=== PATIENT | female | born 1965 | race Caucasian/White ===

== ENCOUNTER 2017-06-25 19:32 | Emergency (ER) | payer MEDICAID ==
[2017-06-25 19:50] VITALS: BP 186/92
--- NOTE | 2017-06-25 20:17 | EDM.PDOC ---
ED HPI GENERAL MEDICAL PROBLEM - General Chief Complaint: Upper Extremity Injury/Pain Stated Complaint: SHOULDER BACK PAINS Time Seen by Provider: 06/25/17 20:07 - History of Present Illness INITIAL COMMENTS - FREE TEXT/NARRATIVE: 52-year-old female presents with left shoulder and upper arm pain. On Thursday the patient was using a pop-up trailer and was brings broke and the top came crashing down she held it up with her arm developed sudden pain in her anterior upper arm and shoulder. This occurred on Thursday her pain is progressively been getting worse she was seen in the clinic yesterday at a shoulder and upper arm x-ray that were negative they've got her scheduled for an MRI in about a month. She was started on [place] which doesn't help too much but does cause a lot of nausea and vomiting. Patient has good range of motion with her forearm with supination and pronation flexion extension causes some pain in her upper arm. 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: - Infectious Disease History Infectious Disease History: Reports: Shingles - Past Surgical History Female Surgical History: Reports: Section Musculoskeletal Surgical History: Reports: Arthroscopic Knee Social & Family History - Tobacco Use Smoking Status *Q: Never Smoker Second Hand Smoke Exposure: No - Caffeine Use Caffeine Use: Reports: Coffee, Soda - Recreational Drug Use Recreational Drug Use: No - Living Situation & Occupation Living situation: Reports: , with Family Occupation: Employed Review of Systems - Review of Systems Review Of Systems: See Below Constitutional: Reports: No Symptoms Respiratory: Reports: No Symptoms Cardiovascular: Reports: No Symptoms GI/Abdominal: Reports: Other (Nausea and vomiting brought on by the [place]) Musculoskeletal: Reports: Shoulder Pain, Arm Pain ED EXAM, GENERAL - Physical Exam Exam: See Below Exam Limited By: No Limitations General Appearance: Alert, No Apparent Distress, Other (Any sort of motion with her shoulder is quite tender. Patient can supinate and pronate her forearm flexion and extension at the elbow causes discomfort in the upper arm mostly anterior aspect) Head: Atraumatic, Normocephalic Neck: Normal Inspection, Supple, Non-Tender, Full Range of Motion. No: Tender Lateral, Tender Midline Respiratory/Chest: No Respiratory Distress, Lungs Clear, Normal Breath Sounds Cardiovascular: Regular Rate, Rhythm, No Edema, No Murmur Back Exam: Muscle Spasm (The upper left back she's developing some spasm especially with the shoulder musculature). No: Paraspinal Tenderness, Vertebral Tenderness Extremities: Other (She does not want to move her shoulder for anything at this point she's got a bulge anteriorly over the humerus and this was worked was initially most tender) Course - Vital Signs Last Recorded V/S: Last Vital Signs Temp 36.2 C 06/25/17 19:45 Pulse 69 06/25/17 19:45 Resp 18 06/25/17 19:45 BP 186/92 H 06/25/17 19:45 Pulse Ox 99 06/25/17 19:45 - Re-Assessments/Exams Free Text/Narrative Re-Assessment/Exam: 06/25/17 20:35 We will attempt to get an MRI in the next few days for her as [facility] can see her early next week her exam and history is consistent with a potential biceps rupture Departure - Departure Time of Disposition: 20:37 Disposition: Home, Self-Care 01 Clinical Impression: Injury of left shoulder, Other injury of muscle, fascia and tendon of long head of biceps, right arm, initial encounter - Discharge Information Prescriptions: Ondansetron [Zofran ODT] 4 mg PO Q6H PRN #10 tab.dis PRN Reason: Nausea/Vomiting Referrals: Fabiola Fontana, DIRECTOR [employer]FFAIRS [Primary Care Provider] - Additional Instructions: Return to the emergency room with any questions problems or worsening symptoms. Stop the Aleve ibuprofen or naproxen as your blood pressure is too high he can continue to use the topical. We have given a prescription for Zofran to help with the nausea brought on by the pain pills uses mostly at night. Use caution with the pain pills you should allow yourself 12 hours after taking this medication before driving or returning to work. Follow-up in the clinic tomorrow or Thursday to have your blood pressure rechecked. In order has been put in for a MRI of your shoulder and upper arm I anticipate this can be done next week.
== END 2017-06-25 21:00 | disposition home or self-care (01) ==
LOC: JD.ED 19:32
DX: S46.801A Unspecified injury of other muscles, fascia and tendons at shoulder and upper arm level, right arm, initial encounter (principal); K21.9 Gastro-esophageal reflux disease without esophagitis; Z88.6 Allergy status to analgesic agent; X58.XXXA Exposure to other specified factors, initial encounter
CPT/HCPCS: 99283

== ENCOUNTER 2018-03-11 00:27 | Emergency (ER) | payer MEDICAID ==
[2018-03-11 00:45] VITALS: BP 144/102
[2018-03-11] MEDS ORDERED: Sulfamethoxazole/Trimethoprim 800-160 MG Tab PO ONE (01:16)
--- NOTE | 2018-03-11 01:30 | EDM.PDOC ---
ED HPI GENERAL MEDICAL PROBLEM - General Chief Complaint: General Stated Complaint: INFECTION AROUND [place] Time Seen by Provider: 03/11/18 00:55 Source of Information: Reports: Patient, RN Notes Reviewed - History of Present Illness INITIAL COMMENTS - FREE TEXT/NARRATIVE: 52-year-old lady comes in concerned about worsening periumbilical cellulitis. That there has been redness of the any central part of her umbilicus for quite some time. Started spreading last Thursday 5 days ago. She was seen at our medical clinic yesterday, prescribed doxycycline 100 mg twice a day. A [place] was drawn around the erythematous border, there are a couple of areas where the erythema has expanded beyond that line this evening bringing her to the ED at this time. He has had no fever or chills. There is localized burning discomfort. To this time she has only taken 1 dose of the doxycycline which was this past morning. She is not diabetic. 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: Reports: 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: - Infectious Disease History Infectious Disease History: Reports: Shingles - Past Surgical History Female Surgical History: Reports: Section Musculoskeletal Surgical History: Reports: Arthroscopic Knee Social & Family History - Tobacco Use Smoking Status *Q: Never Smoker Second Hand Smoke Exposure: No - Caffeine Use Caffeine Use: Reports: Soda - Recreational Drug Use Recreational Drug Use: No - Living Situation & Occupation Living situation: Reports: , with Family Occupation: Employed ED ROS GENERAL - Review of Systems Review Of Systems: See Below Constitutional: Denies: Fever, Chills HEENT: Denies: Throat Pain Respiratory: Denies: Shortness of Breath Cardiovascular: Denies: Chest Pain GI/Abdominal: Reports: Other (Periumbilical discomfort) Skin: Reports: Erythema (There is an area of erythema surrounding her umbilicus) ED EXAM, GENERAL - Physical Exam Exam: See Below General Appearance: Alert, No Apparent Distress Head: No: Facial Swelling Neck: Supple Respiratory/Chest: No Respiratory Distress GI/Abdominal: Other (Umbilicus is inflamed and swollen, there is an area of erythema around the umbilicus in all directions which is about 3.5 cm in diameter. There is a line that was drawn around the erythematous margin. This barely proceeds beyond the margin in a couple of areas. There is some localized tenderness as expected, no subcutaneous mass palpable ) Neurological: Alert, Oriented Skin Exam: Warm, Dry, Other (No other area of skin infection or inflammation brought to my attention) Course - Vital Signs Last Recorded V/S: Last Vital Signs Temp 99.1 F 03/11/18 00:41 Pulse 86 03/11/18 00:41 Resp 18 03/11/18 00:41 BP 144/102 H 03/11/18 00:41 Pulse Ox 94 L 03/11/18 00:41 - Orders/Labs/Meds Meds: Medications Discontinued Medications Generic Name Dose Route Start Last Admin Trade Name Leyla PRN Reason Stop Dose Admin Trimethoprim/Sulfamethoxazole 1 tab 03/11/18 01:16 03/11/18 01:20 Septra Ds PO 03/11/18 01:17 1 tab ONETIME ONE Administration - Re-Assessments/Exams Free Text/Narrative Re-Assessment/Exam: 03/11/18 01:41 I've advised patient to increase her doxycycline to 2 tabs twice daily for the next 2 days and then back to 100 mg twice daily. I have advised that we add a second antibiotic, Bactrim DS twice a day for 1 week. Patient does have concern about possible abscess formation. I can't totally rule that out at this time but on the other hand I do not feel any sign of subcutaneous mass. She has apparent cellulitis. She only presented to medical provider yesterday and has only taken 1 dose of antibiotic. I've explained that it will take several days of the above treatment to get the infection under control and allow the redness and inflammation to start resolving. She inquired about getting an ultrasound tonight. We do have an gis technician on-call but we've been asked to be calling them in primarily for emergency basis only. I do not believe that this is emergency basis to warrant bringing in a tech at 1:30 in the morning. In order for outpatient ultrasound has been written. I've informed patient that our radiology staff will be calling her first thing this morning to set her up for a time today to get that done. Discharge instructions as documented. Departure - Departure Time of Disposition: : Disposition: Home, Self-Care Clinical Impression: Cellulitis Qualifiers: Site of cellulitis of trunk: umbilicus - Discharge Information Instructions: Cellulitis, Adult Referrals: Fabiola Fontana [employer] [Primary Care Provider] - Forms: ED Department Discharge Additional Instructions: Increase your doxycycline to 200 mg twice daily for 2 days and than back to 1 tablet twice daily. Begin Bactrim antibiotic which is sulfa-based 1 tab twice daily and take that for the next week, an order for ultrasound of the area of your infection to rule out abscess has been written and routed to radiology, they will call you first thing this morning to set you up for a time to have that done today. Follow-up with your regular medical provider later today after ultrasound if possible for recheck and for results. Call clinic for appointment. Return to ED as needed if symptoms worsening in any way. Consider taking [id number] Pepcid or Prilosec if you feel that either of these antibiotics are upsetting your stomach.
== END 2018-03-11 01:40 | disposition home or self-care (01) ==
LOC: JD.ED 00:27
DX: L03.316 Cellulitis of umbilicus (principal); Z88.8 Allergy status to other drugs, medicaments and biological substances
CPT/HCPCS: 99283; A9270

== ENCOUNTER 2018-11-04 15:36 | Emergency (ER) | payer MEDICAID ==
[2018-11-04 15:49] VITALS: BP 175/106
[2018-11-04] MEDS ORDERED: LORazepam 2 MG/ML SDV IVPUSH ONE (15:58)
[2018-11-04] MEDS ORDERED: Ondansetron 4 MG/2 ML SDV IVPUSH ONE (15:58)
[2018-11-04] MEDS: Sodium Chloride 0.9% 10 ML Syringe FLUSH PRN ×2 (16:08→16:55)
[2018-11-04] MEDS ORDERED: HYDROmorphone 1 MG/ML Syringe IVPUSH ONE (16:27)
[2018-11-04] MEDS ORDERED: Scopolamine 1.5 MG Transdermal Patch TOP ONE (16:31)
--- NOTE | 2018-11-04 16:31 | EDM.PDOC ---
ED HPI GENERAL MEDICAL PROBLEM - General Chief Complaint: Chest Pain Stated Complaint: CHEST PAIN Time Seen by Provider: 11/04/18 15:50 Source of Information: Reports: Patient History Limitations: Reports: No Limitations - History of Present Illness INITIAL COMMENTS - FREE TEXT/NARRATIVE: 53-year-old female presents for evaluation and treatment of chest pain. Patient reports that the chest pain started suddenly around 1500. Reports that it is located in the center of her chest and she describes the pain as a sharp stabbing sensation that was through her back. She denies any pain currently. Reports that the pain comes on suddenly and lasts for a few seconds to a few minutes. She reports associated symptoms of shortness of breath, diaphoresis and nausea. No vomiting. No syncope. Reports she always has abdominal pain but states this is not any worse than normal. She denies any urinary symptoms. Patient Does not take aspirin due to airway tightness as an allergy. She denies any cardiac history herself. Reports a significant family history of both her mother and father MIs at young age, age 39 and 40s . Onset: Today, Sudden Location: Reports: Chest, Abdomen, Back Middle Chest Pain Score (Numeric/FACES): 9 - Related Data Allergies Allergy/AdvReac Type Severity Reaction Status Date / Time aspirin Allergy Airway Verified 11/04/18 15:53 Tightness Home Meds: Home Meds Ketorolac [Acular 0.5% Ophth Soln] 1 drop EYERT QID PRN #1 bottle 03/15/16 [Rx] Acetaminophen/HYDROcodone [[place] 325-5 MG] 1 tab PO Q4H PRN 06/25/17 [History] Naproxen 250 mg PO 6XDAY PRN 06/25/17 [History] Ondansetron [Zofran ODT] 4 mg PO Q6H PRN #10 tab.dis 06/25/17 [Rx] Acyclovir 800 mg PO BID 11/04/18 [History] Brimonidine Tartrate/Timolol [Combigan Eye Drops] 5 ml OP DAILY 11/04/18 [ History] Carboxymethylcellulose Sodium [Refresh Tears 0.5% Ophth Soln] 15 ml OP DAILY [History] Exenatide Microspheres [Bydureon Pen] 2 mg SQ DAILY 11/04/18 [History] Fluticasone/Sod Chl/Sod Bicarb [Ticanase Kit] 2 spray NS DAILY 11/04/18 [History ] Prednisolone Acetate/Pf [Prednisolone Acet 1% Eye Drop] 1 drop EYERT QID [History] sitaGLIPtin Phos/Metformin HCl [Janumet 50-500 MG] 1 each PO DAILY 11/04/18 [ History] Past Medical History HEENT History: Reports: Other (See Below) Other HEENT History: shingles to right eye Gastrointestinal History: Reports: GERD 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: - Infectious Disease History Infectious Disease History: Reports: Shingles - Past Surgical History HEENT Surgical History: Reports: Eye Surgery Female Surgical History: Reports: Section Musculoskeletal Surgical History: Reports: Arthroscopic Knee Social & Family History - Tobacco Use Smoking Status *Q: Never Smoker Second Hand Smoke Exposure: No - Caffeine Use Caffeine Use: Reports: None - Recreational Drug Use Recreational Drug Use: No - Living Situation & Occupation Living situation: Reports: , with Family Occupation: Employed ED ROS GENERAL - Review of Systems Review Of Systems: See Below Respiratory: Reports: Shortness of Breath. Denies: Cough Cardiovascular: Reports: Chest Pain GI/Abdominal: Reports: Nausea. Denies: Abdominal Pain Musculoskeletal: Reports: Back Pain Neurological: Reports: Dizziness. Denies: Syncope ED EXAM, GENERAL - Physical Exam Exam: See Below Exam Limited By: No Limitations General Appearance: Alert, WD/WN, No Apparent Distress, Anxious, Obese Nose: Normal Inspection Throat/Mouth: Normal Inspection, Normal Voice, No Airway Compromise Respiratory/Chest: No Respiratory Distress, Lungs Clear, Normal Breath Sounds Cardiovascular: Normal Peripheral Pulses, Regular Rate, Rhythm, No Murmur GI/Abdominal: Normal Bowel Sounds, Soft, Non-Tender Neurological: Alert, Oriented, Normal Cognition Psychiatric: Anxious Skin Exam: Warm, Dry, Normal Color EKG INTERPRETATION EKG Date: 11/04/18 Time: 15:44 Rhythm: NSR Rate (Beats/Min): 95 [place]: Normal P-Wave: Present QRS: Normal ST-T: Normal QT: Normal EKG Interpretation Comments: NSR at 95 bpm. No AVB. No AE. < 1/[address] depression lateral leads, but no T wave inversions. No LAD/RAD. No LVH. No IVCD. QTc within normal limits with a QTc of 447. Course - Vital Signs Last Recorded V/S: Last Vital Signs Temp 98.6 F 11/04/18 15:43 Pulse 103 H 11/04/18 15:43 Resp 20 11/04/18 15:43 BP 175/106 H 11/04/18 15:43 Pulse Ox 99 11/04/18 15:43 - Orders/Labs/Meds Orders: Active Orders 24 hr Category Date Time Status Cardiac Monitoring [RC] . DIRECTED Care 11/04/18 15:52 Active EKG Documentation Completion [RC] ASDIRECTED Care 11/04/18 15:54 Active Peripheral IV Care [RC] . DIRECTED Care 11/04/18 15:54 Active Peripheral IV Insertion Adult [OM.PC] Routine Oth 11/04/18 15:52 Ordered EKG 12 Lead [EK] Stat Ther 11/04/18 15:52 Ordered Labs: Laboratory Tests 11/04/18 11/04/18 11/04/18 Range/Units 15:50 15:50 15:50 WBC 10.17 H (3.98-10.04) K/mm3 RBC 5.09 (3.98-5.22) M/mm3 Hgb 15.1 (11.2-15.7) gm/L Hct 45.1 H (34.1-44.9) % MCV 88.6 (79.4-94.8) fl MCH 29.7 (25.6-32.2) pg MCHC 33.5 (32.2-35.5) g/dl RDW Std Deviation 46.1 (36.4-46.3) fL Plt Count 315 (182-369) K/mm3 MPV 10.1 (9.4-12.3) fl Neut % (Auto) 56.2 (34.0-71.1) % Lymph % (Auto) 33.0 (19.3-51.7) % [place] % (Auto) 8.6 (4.7-12.5) % Eos % (Auto) 1.5 (0.7-5.8) Baso % (Auto) 0.5 (0.1-1.2) % Neut # (Auto) 5.72 (1.56-6.13) K/mm3 Lymph # (Auto) 3.36 (1.18-3.74) K/mm3 [place] # (Auto) 0.87 H (0.24-0.36) K/mm3 Eos # (Auto) 0.15 (0.04-0.36) K/mm3 Baso # (Auto) 0.05 (0.01-0.08) K/mm3 D-Dimer, Quantitative 0.45 (0.19-0.50) mg/L Sodium 139 (136-145) mEq/L Potassium 3.7 (3.5-5.1) mEq/L Chloride 103 (98-107) mEq/L Carbon Dioxide 26 (21-32) mEq/L Anion Gap 13.7 (5-15) BUN 13 (7-18) mg/dL Creatinine 0.9 (0.55-1.02) mg/dL Est Cr Clr Drug Dosing 73.76 mL/min Estimated GFR (MDRD) > 60 (>60) mL/min BUN/Creatinine Ratio 14.4 (14-18) Glucose 83 (74-106) mg/dL Calcium 9.6 (8.5-10.1) mg/dL Total Bilirubin 0.7 (0.2-1.0) mg/dL AST 28 (15-37) U/L ALT 56 (14-59) U/L Alkaline Phosphatase 65 (46-116) U/L CK-MB (CK-2) 1.3 (0-3.6) ng/ml Troponin I < 0.017 (0.00-0.056) ng/mL C-Reactive Protein (<1.0) mg/dL Total Protein 8.4 H (6.4-8.2) g/dl Albumin 4.3 (3.4-5.0) g/dl Globulin 4.1 gm/dL Albumin/Globulin Ratio 1.1 (1-2) Lipase (73-393) U/L Urine Color (Yellow) Urine Appearance (Clear) Urine pH (5.0-8.0) Ur Specific [place] (1.005-1.030) Urine Protein (Negative) Urine Glucose (UA) (Negative) Urine Ketones (Negative) Urine Occult Blood (Negative) Urine Nitrite (Negative) Urine Bilirubin (Negative) Urine Urobilinogen (0.2-1.0) Ur Leukocyte Esterase (Negative) Urine RBC (0-5) /hpf Urine WBC (0-5) /hpf Ur Epithelial Cells (0-5) /hpf Urine Bacteria (FEW) /hpf Urine Mucus (FEW) /hpf 11/04/18 11/04/18 11/04/18 Range/Units 15:50 15:50 16:35 WBC (3.98-10.04) K/mm3 RBC (3.98-5.22) M/mm3 Hgb (11.2-15.7) gm/L Hct (34.1-44.9) % MCV (79.4-94.8) fl MCH (25.6-32.2) pg MCHC (32.2-35.5) g/dl RDW Std Deviation (36.4-46.3) fL Plt Count (182-369) K/mm3 MPV (9.4-12.3) fl Neut % (Auto) (34.0-71.1) % Lymph % (Auto) (19.3-51.7) % [place] % (Auto) (4.7-12.5) % Eos % (Auto) (0.7-5.8) Baso % (Auto) (0.1-1.2) % Neut # (Auto) (1.56-6.13) K/mm3 Lymph # (Auto) (1.18-3.74) K/mm3 [place] # (Auto) (0.24-0.36) K/mm3 Eos # (Auto) (0.04-0.36) K/mm3 Baso # (Auto) (0.01-0.08) K/mm3 D-Dimer, Quantitative (0.19-0.50) mg/L Sodium (136-145) mEq/L Potassium (3.5-5.1) mEq/L Chloride (98-107) mEq/L Carbon Dioxide (21-32) mEq/L Anion Gap (5-15) BUN (7-18) mg/dL Creatinine (0.55-1.02) mg/dL Est Cr Clr Drug Dosing mL/min Estimated GFR (MDRD) (>60) mL/min BUN/Creatinine Ratio (14-18) Glucose (74-106) mg/dL Calcium (8.5-10.1) mg/dL Total Bilirubin (0.2-1.0) mg/dL AST (15-37) U/L ALT (14-59) U/L Alkaline Phosphatase (46-116) U/L CK-MB (CK-2) (0-3.6) ng/ml Troponin I (0.00-0.056) ng/mL C-Reactive Protein < 0.2 (<1.0) mg/dL Total Protein (6.4-8.2) g/dl Albumin (3.4-5.0) g/dl Globulin gm/dL Albumin/Globulin Ratio (1-2) Lipase 229 (73-393) U/L Urine Color Yellow (Yellow) Urine Appearance Clear (Clear) Urine pH 7.0 (5.0-8.0) Ur Specific [place] 1.020 (1.005-1.030) Urine Protein Negative (Negative) Urine Glucose (UA) Negative (Negative) Urine Ketones Negative (Negative) Urine Occult Blood Negative (Negative) Urine Nitrite Negative (Negative) Urine Bilirubin Negative (Negative) Urine Urobilinogen 0.2 (0.2-1.0) Ur Leukocyte Esterase Trace H (Negative) Urine RBC 0-5 (0-5) /hpf Urine WBC 0-5 (0-5) /hpf Ur Epithelial Cells 5-10 H (0-5) /hpf Urine Bacteria Moderate H (FEW) /hpf Urine Mucus Not seen (FEW) /hpf 11/04/18 Range/Units 18:50 WBC (3.98-10.04) K/mm3 RBC (3.98-5.22) M/mm3 Hgb (11.2-15.7) gm/L Hct (34.1-44.9) % MCV (79.4-94.8) fl MCH (25.6-32.2) pg MCHC (32.2-35.5) g/dl RDW Std Deviation (36.4-46.3) fL Plt Count (182-369) K/mm3 MPV (9.4-12.3) fl Neut % (Auto) (34.0-71.1) % Lymph % (Auto) (19.3-51.7) % [place] % (Auto) (4.7-12.5) % Eos % (Auto) (0.7-5.8) Baso % (Auto) (0.1-1.2) % Neut # (Auto) (1.56-6.13) K/mm3 Lymph # (Auto) (1.18-3.74) K/mm3 [place] # (Auto) (0.24-0.36) K/mm3 Eos # (Auto) (0.04-0.36) K/mm3 Baso # (Auto) (0.01-0.08) K/mm3 D-Dimer, Quantitative (0.19-0.50) mg/L Sodium (136-145) mEq/L Potassium (3.5-5.1) mEq/L Chloride (98-107) mEq/L Carbon Dioxide (21-32) mEq/L Anion Gap (5-15) BUN (7-18) mg/dL Creatinine (0.55-1.02) mg/dL Est Cr Clr Drug Dosing mL/min Estimated GFR (MDRD) (>60) mL/min BUN/Creatinine Ratio (14-18) Glucose (74-106) mg/dL Calcium (8.5-10.1) mg/dL Total Bilirubin (0.2-1.0) mg/dL AST (15-37) U/L ALT (14-59) U/L Alkaline Phosphatase (46-116) U/L CK-MB (CK-2) (0-3.6) ng/ml Troponin I < 0.017 (0.00-0.056) ng/mL C-Reactive Protein (<1.0) mg/dL Total Protein (6.4-8.2) g/dl Albumin (3.4-5.0) g/dl Globulin gm/dL Albumin/Globulin Ratio (1-2) Lipase (73-393) U/L Urine Color (Yellow) Urine Appearance (Clear) Urine pH (5.0-8.0) Ur Specific [place] (1.005-1.030) Urine Protein (Negative) Urine Glucose (UA) (Negative) Urine Ketones (Negative) Urine Occult Blood (Negative) Urine Nitrite (Negative) Urine Bilirubin (Negative) Urine Urobilinogen (0.2-1.0) Ur Leukocyte Esterase (Negative) Urine RBC (0-5) /hpf Urine WBC (0-5) /hpf Ur Epithelial Cells (0-5) /hpf Urine Bacteria (FEW) /hpf Urine Mucus (FEW) /hpf Meds: Medications Discontinued Medications Generic Name Dose Route Start Last Admin Trade Name Freq PRN Reason Stop Dose Admin Hydromorphone HCl 0.5 mg 11/04/18 16:27 11/04/18 19:13 Dilaudid IVPUSH 11/04/18 16:28 Not Given ONETIME ONE Sodium Chloride 100 mls @ 60 mls/hr 11/04/18 16:45 11/04/18 16:55 Normal Saline IV 60 mls/hr ASDIRECTED OLGA Administration Iopamidol 100 ml 11/04/18 16:45 11/04/18 16:55 Isovue-370 (76%) IVPUSH 11/04/18 16:46 100 ml ONETIME ONE Administration Lorazepam 1 mg 11/04/18 15:58 11/04/18 16:08 Ativan IVPUSH 11/04/18 15:59 Not Given ONETIME ONE Ondansetron HCl 4 mg 11/04/18 15:58 11/04/18 16:08 Zofran IVPUSH 11/04/18 15:59 Not Given ONETIME ONE Scopolamine 1.5 mg 11/04/18 16:31 11/04/18 16:36 Transderm-Scop TOP 11/04/18 16:32 1.5 mg ONETIME ONE Administration Sodium Chloride 10 ml 11/04/18 15:52 11/04/18 16:55 Saline Flush FLUSH 10 ml ASDIRECTED PRN Administration Keep Vein Open - Radiology Interpretation Free Text/Narrative:: Chest: Portable view of the chest was obtained. Comparison: No previous chest x-ray. Heart size is normal. Tortuous thoracic aorta is seen. Lungs are clear with no acute parenchymal change. Bony structures are grossly intact. Impression: 1. Nothing acute is seen on portable chest x-ray. Chest: Portable view of the chest was obtained. Comparison: No previous chest x-ray. Heart size is normal. Tortuous thoracic aorta is seen. Lungs are clear with no acute parenchymal change. Bony structures are grossly intact. Impression: 1. Nothing acute is seen on portable chest x-ray. CT chest Technique: Multiple axial sections through the chest were obtained. Intravenous contrast was utilized. Comparison: No prior chest CT, previous chest x-ray performed earlier on the same day (4:17 PM). Findings: Aorta shows no aneurysm or dissection. Visualized pulmonary arteries show no evidence of pulmonary embolism. No pericardial thickening is seen. Mediastinum and hilar regions show no adenopathy. No axillary adenopathy is seen. Small nodule is identified within the right upper lung measuring 3 mm. Lungs otherwise are clear. Bone window settings were reviewed which shows no acute osseous abnormality. Minimal degenerative change is scattered throughout the thoracic spine. Impression: 1. No evidence of thoracic aortic aneurysm or dissection. 2. 3 mm nodule within the right upper lung showing no calcification. If patient is not a smoker, this can be ignored. If patient is a smoker, recommend repeat noncontrast chest CT in one year. 3. Other incidental findings. CT abdomen and pelvis Technique: Multiple axial sections were obtained from above the dome of the diaphragm inferiorly through the pubic symphysis. Intravenous contrast was utilized. No oral contrast has been given. Comparison: Previous limited abdominal ultrasound of 03/11/18 is available. Findings: Liver shows mild fatty infiltration without focal abnormality. Surgical clips are seen from prior cholecystectomy. Spleen appears within normal limits. Small soft tissue nodule is noted medial to the spleen compatible with accessory splenic tissue. No adrenal nodule is seen. Pancreas is within normal limits. Kidneys show symmetric contrast enhancement without hydronephrosis or mass. Aorta shows no aneurysm. No dissection is seen. No pelvic mass or adenopathy is seen. Sigmoid diverticuli are seen as well as diverticuli within the descending colon without evidence of diverticulitis. Appendix is felt to be visualized and is normal in size. Bone window settings were reviewed which shows mild degenerative change within the spine. No acute osseous abnormality is seen. Impression: 1. Aorta shows no aneurysm or dissection. 2. Fatty infiltration within the liver and other incidental findings as described above. 3. Nothing acute is seen. - Re-Assessments/Exams Free Text/Narrative Re-Assessment/Exam: 11/04/18 16:34 Aspirin is not given to this patient due to allergy of airway tightness with aspirin. Patient notified radiology staff after chest x-ray she experienced pain. I entered the room she identified pain in the right upper quadrant. She then states that it went to the right side of her back. She then reported pain to the left side of her back. Reports the pain was sharp stabbing in nature and a 10 out of 10. She is moaning and squirming on the cot. She has refused to the IV Ativan and Zofran. She states that they make her nauseous and vomited. She refused IV Dilaudid for pain control. We will CT her chest abdomen and pelvis ensure there is no dissection. Suspect anxiety as a large component of her discomfort. Previous abdominal surgeries include lap dolores. 11/04/18 20:25 Reviewed labs, ekg and imaging with the patient. Repeat trop is <0.017. Patient is not having an acute MA. Based on history she should have a stress test and have her cholesterol checked if this has not been done. Recommend follow-up in the clinic. She would like to peruse further work-up with Marcos. I will have her follow-up with PCP and they can order the stress test and refer to cardiology if necessary. Discharge instructions as documented. Departure - Departure Time of Disposition: 20:26 Disposition: Home, Self-Care 01 Condition: Good Clinical Impression: Atypical chest pain Instructions: Nonspecific Chest Pain, Enqx-in-Goyl Referrals: Josephine Dickens PA-C [Primary Care Provider] - Forms: ED Department Discharge Additional Instructions: Follow-up with PCP this week or next week for a recheck of your symptoms. Highly recommend getting a stress test. Your PCP can order this for you. Continue with current medication and plan of care. Recommend holding your metformin x 3 days, if you do not feel uncomfortable holding your metformin, you may continue on it but make sure you are drinking plenty of fluids. Please return to the ER should your symptoms change or worsen. - My Orders Last 24 Hours: My Active Orders 11/04/18 15:52 Cardiac Monitoring [RC] . DIRECTED Peripheral IV Insertion Adult [OM.PC] Routine EKG 12 Lead [EK] Stat 11/04/18 15:54 EKG Documentation Completion [RC] ASDIRECTED Peripheral IV Care [RC] . DIRECTED - Assessment/Plan Last 24 Hours: My Active Orders 11/04/18 15:52 Cardiac Monitoring [RC] . DIRECTED Peripheral IV Insertion Adult [OM.PC] Routine EKG 12 Lead [EK] Stat 11/04/18 15:54 EKG Documentation Completion [RC] ASDIRECTED Peripheral IV Care [RC] . DIRECTED
[2018-11-04] MEDS ORDERED: Sodium Chloride 0.9% 100 ML IV SCH (16:45)
[2018-11-04] MEDS ORDERED: Iopamidol 755 Mg/ML 100 ML Bottle IVPUSH ONE (16:45)
--- NOTE | 2018-11-04 17:33 | CT ---
CT chest Technique: Multiple axial sections through the chest were obtained. Intravenous contrast was utilized. Comparison: No prior chest CT, previous chest x-ray performed earlier on the same day (4:17 PM). Findings: Aorta shows no aneurysm or dissection. Visualized pulmonary arteries show no evidence of pulmonary embolism. No pericardial thickening is seen. Mediastinum and hilar regions show no adenopathy. No axillary adenopathy is seen. Small nodule is identified within the right upper lung measuring 3 mm. Lungs otherwise are clear. Bone window settings were reviewed which shows no acute osseous abnormality. Minimal degenerative change is scattered throughout the thoracic spine. Impression: 1. No evidence of thoracic aortic aneurysm or dissection. 2. 3 mm nodule within the right upper lung showing no calcification. If patient is not a smoker, this can be ignored. If patient is a smoker, recommend repeat noncontrast chest CT in one year. 3. Other incidental findings. Diagnostic code #3 CT abdomen and pelvis Technique: Multiple axial sections were obtained from above the dome of the diaphragm inferiorly through the pubic symphysis. Intravenous contrast was utilized. No oral contrast has been given. Comparison: Previous limited abdominal ultrasound of 03/11/18 is available. Findings: Liver shows mild fatty infiltration without focal abnormality. Surgical clips are seen from prior cholecystectomy. Spleen appears within normal limits. Small soft tissue nodule is noted medial to the spleen compatible with accessory splenic tissue. No adrenal nodule is seen. Pancreas is within normal limits. Kidneys show symmetric contrast enhancement without hydronephrosis or mass. Aorta shows no aneurysm. No dissection is seen. No pelvic mass or adenopathy is seen. Sigmoid diverticuli are seen as well as diverticuli within the descending colon without evidence of diverticulitis. Appendix is felt to be visualized and is normal in size. Bone window settings were reviewed which shows mild degenerative change within the spine. No acute osseous abnormality is seen. Impression: 1. Aorta shows no aneurysm or dissection. 2. Fatty infiltration within the liver and other incidental findings as described above. 3. Nothing acute is seen. Diagnostic code #2
--- NOTE | 2018-11-04 18:47 | CR ---
Chest: Portable view of the chest was obtained. Comparison: No previous chest x-ray. Heart size is normal. Tortuous thoracic aorta is seen. Lungs are clear with no acute parenchymal change. Bony structures are grossly intact. Impression: 1. Nothing acute is seen on portable chest x-ray. Diagnostic code #1
== END 2018-11-04 20:45 | disposition home or self-care (01) ==
LOC: JD.ED 15:36
DX: R07.89 Other chest pain (principal); K21.9 Gastro-esophageal reflux disease without esophagitis; Z88.6 Allergy status to analgesic agent
CPT/HCPCS: 36415; 71045; 71260; 74177; 80053; 81001; 82553; 83690; 84484; 85025; 85379; 86140; 93005; 99285; A9270; J7030; Q9967; 93010; 99284

== ENCOUNTER 2019-03-20 20:19 | Emergency (ER) | payer MEDICAID ==
[2019-03-20] MEDS ORDERED: LORazepam 2 MG/ML SDV IVPUSH ONE (20:27)
[2019-03-20] MEDS ORDERED: HYDROmorphone 0.5 MG/0.5 ML Syringe IVPUSH ONE (20:28)
[2019-03-20] MEDS ORDERED: Lidocaine 1% 20 ML MDV INJECT ONE ×2 (20:38→21:02)
[2019-03-20] MEDS ORDERED: Bupivacaine 0.5% 10 ML SDV INJECT ONE (20:38)
[2019-03-20] MEDS ORDERED: Lidocaine 1% 50 ML MDV ONE (20:52)
--- NOTE | 2019-03-20 20:53 | EDM.PDOC ---
ED HPI GENERAL MEDICAL PROBLEM - General Chief Complaint: Upper Extremity Injury/Pain Stated Complaint: SOB AND WRIST LACERATION Time Seen by Provider: 03/20/19 20:23 Source of Information: Reports: Patient History Limitations: Reports: No Limitations - History of Present Illness INITIAL COMMENTS - FREE TEXT/NARRATIVE: 54-year-old female presents for evaluation and treatment of a laceration to the right thumb. injury occurred just prior to arrival in the ER. patient reports she broke a plate causing a laceration to the thumb. A shard of the plate is still present in her thumb upon arrival. Shard removed by Dr. Wilcox. Patient reports sensation to light touch and is able to flex and extend the thumb. Patient is also complaining of shortness of breath. She is hyperventilating is currently very anxious. Reports she is interstitial lung disease. Patient reports her tetanus is up to date. Right Hand Pain Score (Numeric/FACES): 10 - Related Data Allergies Allergy/AdvReac Type Severity Reaction Status Date / Time aspirin Allergy Airway Verified 11/04/18 15:53 Tightness Home Meds: Home Meds Ketorolac [Acular 0.5% Ophth Soln] 1 drop EYERT QID PRN #1 bottle 03/15/16 [Rx] Acetaminophen/HYDROcodone [[place] 325-5 MG] 1 tab PO Q4H PRN 06/25/17 [History] Naproxen 250 mg PO 6XDAY PRN 06/25/17 [History] Ondansetron [Zofran ODT] 4 mg PO Q6H PRN #10 tab.dis 06/25/17 [Rx] Acyclovir 800 mg PO BID 11/04/18 [History] Brimonidine Tartrate/Timolol [Combigan Eye Drops] 5 ml OP DAILY 11/04/18 [ History] Carboxymethylcellulose Sodium [Refresh Tears 0.5% Ophth Soln] 15 ml OP DAILY [History] Exenatide Microspheres [Bydureon Pen] 2 mg SQ DAILY 11/04/18 [History] Fluticasone/Sod Chl/Sod Bicarb [Ticanase Kit] 2 spray NS DAILY 11/04/18 [History ] Prednisolone Acetate/Pf [Prednisolone Acet 1% Eye Drop] 1 drop EYERT QID [History] sitaGLIPtin Phos/Metformin HCl [Janumet 50-500 MG] 1 each PO DAILY 11/04/18 [ History] Past Medical History HEENT History: Reports: Other (See Below) Other HEENT History: shingles to right eye Cardiovascular History: Reports: Hypertension, [place], Other (See Below) Other Cardiovascular History: 11-25-18 Respiratory History: Reports: Interstitial Lung Disease Gastrointestinal History: Reports: 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: Endocrine/Metabolic History: Reports: Diabetes, Type II - Infectious Disease History Infectious Disease History: Reports: Shingles - Past Surgical History HEENT Surgical History: Reports: Eye Surgery Female Surgical History: Reports: Section Musculoskeletal Surgical History: Reports: Arthroscopic Knee Social & Family History - Tobacco Use Smoking Status *Q: Never Smoker - Caffeine Use Caffeine Use: Reports: Coffee - Recreational Drug Use Recreational Drug Use: No - Living Situation & Occupation Living situation: Reports: , with Family Occupation: Employed Review of Systems - Review of Systems Review Of Systems: See Below Respiratory: Reports: Shortness of Breath Musculoskeletal: Reports: Hand Pain (right thumb) Skin: Reports: Wound (right thumb) Neurological: Denies: Numbness (reprots sensation to light touch but statehs the thumb is numb), Tingling ED EXAM, GENERAL - Physical Exam Exam: See Below Exam Limited By: No Limitations General Appearance: Alert, WD/WN, Anxious, Obese Throat/Mouth: Normal Inspection Respiratory/Chest: Other (patient is hyperventilating) Cardiovascular: Normal Peripheral Pulses Peripheral Pulses: 3+: Radial (R) Extremities: Normal Inspection (no obvious deformities, laceration to the right ventral thumb), Normal Range of Motion (patient is able to flex, extend, adduct and abduct the right thumb able to oppose fingers to thumb), Normal Capillary Refill Neurological: Alert, Oriented, Normal Cognition Psychiatric: Normal Affect, Normal Mood Skin Exam: Warm, Dry, Normal Color, Wound/Incision (patient initally arrived with a piece of plate through her thumb, once removed, a 3cm laceration was present on the ventral right thumb and a 1 cm laceration to the medial thumb ulnar aspect) ED TRAUMA EXTREMITY PROCEDURES - Laceration/Wound Repair Right Ventral Digit - 1st (Thumb) Lac/Wound Length In cm: 4 (3 cm laceration and a 1cm laceration) Appearance: Subcutaneous, Irregular, Mildly Contaminated Distal NVT: Neuro & Vascular Intact, No Tendon Injury Anesthetic Type: Digital Local Anesthesia - Lidocaine (Xylocaine): 1% Plain Local Anesthesia - Bupivicaine (Marcaine): 0.5% Plain Local Anesthetic Volume: 5cc Skin Prep: Providone-Iodine (Betadine), Saline, Sterile Drape Saline Irrigation (cc's): 250 Exploration/Debridement/Repair: Wound Explored Closed With: Sutures Suture Size: 4-0 # of Sutures: 5 (4 sutures to the 3 cm laceraation and 1 to the 1cm laceration) Suture Type: Nylon, Interrupted, Simple Sterile Dressing Applied: Nurse Tetanus Status Addressed: Yes Complications: No Course - Vital Signs Last Recorded V/S: Last Vital Signs Temp 98.0 F 03/20/19 20:44 Pulse 103 H 03/20/19 20:48 Resp 22 H 03/20/19 20:48 BP 141/85 H 03/20/19 20:48 Pulse Ox 93 L 03/20/19 20:48 - Orders/Labs/Meds Orders: Active Orders 24 hr Category Date Time Status Oxygen Therapy [RC] ASDIRECTED Care 03/20/19 23:29 Active Meds: Medications Discontinued Medications Generic Name Dose Route Start Last Admin Trade Name Tremaineq PRN Reason Stop Dose Admin Bupivacaine HCl 10 ml 03/20/19 20:38 03/20/19 21:02 Sensorcaine-Mpf 0.5% INJECT 03/20/19 20:39 10 ml ONETIME ONE Administration Ceftriaxone Sodium 1 gm/ 0 gm 03/20/19 22:00 03/20/19 22:11 Lidocaine HCl 2.1 ml IM 1 inj Q24H OLGA Administration Hydromorphone HCl 0.5 mg 03/20/19 20:28 03/20/19 20:37 Dilaudid IVPUSH 03/20/19 20:29 0.5 mg ONETIME ONE Administration Lidocaine HCl 20 ml 03/20/19 20:38 03/20/19 21:02 Xylocaine 1% INJECT 03/20/19 20:39 Not Given ONETIME ONE Lidocaine HCl Confirm 03/20/19 20:52 03/20/19 21:02 Xylocaine 1% Administered 03/20/19 20:53 Not Given Dose 50 ml .ROUTE .STK-MED ONE Lidocaine HCl 50 ml 03/20/19 21:02 06/09/19 21:03 Xylocaine 1% INJECT 03/20/19 21:03 50 ml ONETIME ONE Administration Lorazepam 1 mg 03/20/19 20:27 03/20/19 20:37 Ativan IVPUSH 03/20/19 20:28 1 mg ONETIME ONE Administration - Re-Assessments/Exams Free Text/Narrative Re-Assessment/Exam: 03/20/19 21:47 Sutures were placed to the right hand thumb. Patient tolerated the suture placement much better after some IV ativan and Dilaudid. Patient has full range of motion including flexion and extension. She has sensation to light touch. Will give her some Rocephin due to concerns of infection as her hands were dirty at the time of the injury and she is a diabetic. She is unable take any oral medications therefore we decided for a shot of Rocephin. We'll discharge her home at this time. Discharge instructions his document. Departure - Departure Time of Disposition: 21:48 Disposition: Home, Self-Care 01 Condition: Good Clinical Impression: Laceration - Discharge Information *PRESCRIPTION DRUG MONITORING PROGRAM REVIEWED*: No *COPY OF PRESCRIPTION DRUG MONITORING REPORT IN PATIENT BREANNA: No Instructions: Laceration Care, Adult Referrals: PCP,None [Primary Care Provider] - Forms: ED Department Discharge Additional Instructions: Wash the wound with gentle soap and water twice a day. May Apply topical ointments as Neosporin or bacitracin to the wound. Have the sutures removed in 10 days. [facility] 8 AM to 5 pm Thursday through Thursday and can for free. Call [phone] to schedule the provider there. Monitor for signs of infection such as increased swelling, pus or redness. Presents to clinic or the ER states develop. please return to the ER if your symptoms change or worsen. - My Orders Last 24 Hours: My Active Orders 03/20/19 23:29 Oxygen Therapy [RC] ASDIRECTED - Assessment/Plan Last 24 Hours: My Active Orders 03/20/19 23:29 Oxygen Therapy [RC] ASDIRECTED
[2019-03-20] MEDS ORDERED: cefTRIAXone 1 GM, Lidocaine 1% 2.1 ML IM SCH ×2 (22:00)
[2019-03-20 23:27] VITALS: BP 141/85
== END 2019-03-20 22:30 | disposition home or self-care (01) ==
LOC: JD.ED 20:19
DX: S61.011A Laceration without foreign body of right thumb without damage to nail, initial encounter (principal); R06.02 Shortness of breath; E11.9 Type 2 diabetes mellitus without complications; K21.9 Gastro-esophageal reflux disease without esophagitis; Z79.899 Other long term (current) drug therapy; Z88.6 Allergy status to analgesic agent; W26.8XXA Contact with other sharp object(s), not elsewhere classified, initial encounter
CPT/HCPCS: 12002; 96372; 96374; 96375; 99283; J0696; J1170; J2001; J2060; J3490

== ENCOUNTER 2019-11-14 20:32 | Emergency (ER) | payer MEDICAID ==
[2019-11-14 21:41] VITALS: BP 186/101; PULSE 76
[2019-11-14] MEDS ORDERED: HYDROmorphone 1 MG/ML Syringe IM ONE (22:17)
--- NOTE | 2019-11-14 22:23 | EDM.PDOC ---
ED HPI GENERAL MEDICAL PROBLEM - General Chief Complaint: Upper Extremity Injury/Pain Stated Complaint: hand injury Time Seen by Provider: 11/14/19 22:07 Source of Information: Reports: Patient, RN Notes Reviewed History Limitations: Reports: No Limitations - History of Present Illness INITIAL COMMENTS - FREE TEXT/NARRATIVE: Patient is a 54-year-old female who presents to the ED for a left hand injury. Patient states that at around 7 PM tonight, she had a cast iron dahl dropped onto her left thumb. The patient states that her fingers are kind of numb and tingly, she is unable to move the thumb much at all or her pointer finger. She is not had any previous injury to that site. Patient is neurovascularly intact otherwise. Pulses are present and strong in the left wrist. Patient did not take any sort of pain medication for pain relief, and she states that she cannot take pills, but she has a prescription for hydrocodone liquid at home. Left Hand Pain Score (Numeric/FACES): 8 - Related Data Allergies Allergy/AdvReac Type Severity Reaction Status Date / Time aspartame Allergy Swollen Verified 11/14/19 21:42 Tongue aspirin Allergy Airway Verified 11/14/19 21:41 Tightness Home Meds: Home Meds Ketorolac [Acular 0.5% Ophth Soln] 1 drop EYERT QID PRN #1 bottle 03/15/16 [Rx] Naproxen 250 mg PO 6XDAY PRN 06/25/17 [History] Acyclovir 800 mg PO BID 11/04/18 [History] Brimonidine Tartrate/Timolol [Combigan Eye Drops] 5 ml OP DAILY 11/04/18 [ History] Carboxymethylcellulose Sodium [Refresh Tears 0.5% Ophth Soln] 15 ml OP DAILY [History] Exenatide Microspheres [Bydureon Pen] 2 mg SQ DAILY 11/04/18 [History] Fluticasone/Sod Chl/Sod Bicarb [Ticanase Kit] 2 spray NS DAILY 11/04/18 [History ] Prednisolone Acetate/Pf [Prednisolone Acet 1% Eye Drop] 1 drop EYERT QID [History] Hydrocodone/Acetaminophen [Hydrocodone-Acetamin 2.5-108/5] 10 ml PO Q6H #120 solution 11/14/19 [Rx] cycloSPORINE [Restasis] 1 drop OP BID 11/14/19 [History] Past Medical History HEENT History: Reports: Other (See Below) Other HEENT History: shingles to right eye Cardiovascular History: Reports: Hypertension, [place], Other (See Below) Other Cardiovascular History: [place] 11-22-18 Respiratory History: Reports: Interstitial Lung Disease Gastrointestinal History: Reports: GERD 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: Endocrine/Metabolic History: Reports: Diabetes, Type II, Obesity/BMI 30+ - Infectious Disease History Infectious Disease History: Reports: Shingles - Past Surgical History HEENT Surgical History: Reports: Eye Surgery Female Surgical History: Reports: Section Musculoskeletal Surgical History: Reports: Arthroscopic Knee Social & Family History - Tobacco Use Smoking Status *Q: Never Smoker - Caffeine Use Caffeine Use: Reports: None - Recreational Drug Use Recreational Drug Use: No - Living Situation & Occupation Living situation: Reports: , with Family Occupation: Employed Review of Systems - Review of Systems Review Of Systems: Comprehensive ROS is negative, except as noted in HPI. Musculoskeletal: Reports: Joint Pain (R thumb pain), Joint Swelling (R thumb) ED EXAM, GENERAL - Physical Exam Exam: See Below Exam Limited By: No Limitations General Appearance: Alert, WD/WN, No Apparent Distress Eye Exam: Bilateral Eye: EOMI, Normal Inspection, PERRL Respiratory/Chest: No Respiratory Distress, Lungs Clear, Normal Breath Sounds, No Accessory Muscle Use, Chest Non-Tender Cardiovascular: Normal Peripheral Pulses, Regular Rate, Rhythm, No Murmur Extremities: Normal Inspection, Normal Capillary Refill, Joint Swelling (L thumb base with pain), Limited Range of Motion (of L thumb d/t injury, able to move all other fingers appropriately) Neurological: Alert, Oriented, Normal Cognition, No Motor/Sensory Deficits Psychiatric: Normal Affect, Normal Mood Skin Exam: Warm, Dry, Intact, Normal Color, No Rash ED TRAUMA EXTREMITY PROCEDURES - Splinting Left Upper Extremity Splint Site: L thumb/wrist Pre-Procedure NV Status: Normal Post-Procedure NV Status: Normal Splint Material: Other (pre-ben) Splint Design: Thumb Spica Applied & Form Fitted By: Provider Provider Post-Splint Application NV Check: NV Status Normal, Good Position Complications: No Course - Vital Signs Last Recorded V/S: Last Vital Signs Temp 98.9 F 11/14/19 21:39 Pulse 76 11/14/19 21:39 Resp 16 11/14/19 21:39 BP 186/101 H 11/14/19 21:39 Pulse Ox 96 11/14/19 21:39 - Orders/Labs/Meds Orders: Active Orders 24 hr Category Date Time Status Wrist Comp Min 3V Lt [CR] Stat Exams 11/14/19 21:53 Taken DME for Discharge [COMM] Routine Oth 11/14/19 22:59 Ordered Meds: Medications Discontinued Medications Generic Name Dose Route Start Last Admin Trade Name Leyla PRN Reason Stop Dose Admin Hydromorphone HCl 1 mg 11/14/19 22:17 11/14/19 22:22 Dilaudid IM 11/14/19 22:18 1 mg ONETIME ONE Administration - Re-Assessments/Exams Free Text/Narrative Re-Assessment/Exam: 11/14/19 22:32 Patient presents to the ED for evaluation of a left thumb injury. X-rays do demonstrate an area of concern at the base of her left thumb, this will likely need surgical repair. I will push the images to bone and joint at [facility] , she states she would like to follow-up with Dr. Huggins at bone and joint for further management. I believe this is fine to do so, she can call and correlate this tomorrow morning. I will place a thumb spica splint and provide her with some liquid hydrocodone pain medication. 11/14/19 22:36 Just got the report from [facility], there appears to be severe osteoarthritis at the base of the thumb, and soft tissue swelling posteriorly with a small rounded bony density which may represent a small chip fracture of the triquetrum. Nonetheless patient is having an immense amount of pain and cannot move her thumb. She will be placed in a thumb spica splint and follow-up with Ortho as previously directed. Departure - Departure Time of Disposition: 23:09 Disposition: Home, Self-Care 01 Condition: Fair Clinical Impression: Pain of left thumb Triquetral chip fracture Qualifiers: Encounter type: initial encounter Fracture type: closed Laterality: left Qualified Code(s): S62.112A - Displaced fracture of triquetrum [cuneiform] bone , left wrist, initial encounter for closed fracture - Discharge Information *PRESCRIPTION DRUG MONITORING PROGRAM REVIEWED*: Yes *COPY OF PRESCRIPTION DRUG MONITORING REPORT IN PATIENT BREANNA: No Prescriptions: Hydrocodone/Acetaminophen [Hydrocodone-Acetamin 2.5-108/5] 10 ml PO Q6H #120 solution Instructions: Wrist Fracture Treated With Immobilization Referrals: PCP,Not In Area [Primary Care Provider] - Forms: ED Department Discharge Additional Instructions: You have been evaluated in the ED for your Left wrist/thumb pain. Your x-ray demonstrated severe osteoarthritis and a questionable chip fracture of the triquetrum bone in your left wrist. Please use ice as tolerated to the affected area. Please keep the wrist splint in place until reviewed by Ortho. You may take Tylenol 500 mg or ibuprofen 600mg q6 hrs for pain relief. Please do so until you have a tolerable level of pain with activity. Do not exceed 4000mg Tylenol, Do not exceed 3200mg ibuprofen in a 24 hour time period. You were given a prescription for a strong pain medication, hydrocodone/ acetaminophen please take 5-10mL every 6 hours as needed for pain not relieved by Tylenol or ibuprofen alone. Please note this does contain Tylenol in it, so do not take more than 4000 mg in a 24-hour time span. These medications can be addictive, so please take as few as possible to achieve adequate pain control. These meds can also be quite constipating, recommend that you increase your oral fluid intake and take a stool softener like MiraLAX while taking these medications. Please call Ortho for follow-up and further evaluation; recommend you contact the [facility] clinic in [facility], their number there is [phone]. Please call and set up an appointment as soon as possible for further management. Your images were electronically pushed to their facility for their review. Please return to ED if your symptoms should change or worsen. Sepsis Event Note - Evaluation Sepsis Screening Result: No Definite Risk - Focused Exam Vital Signs: Vital Signs Temp Pulse Resp BP Pulse Ox 11/14/19 21:39 98.9 F 76 16 186/101 H 96 Date Exam was Performed: 11/14/19 Time Exam was Performed: 23:09 - My Orders Last 24 Hours: My Active Orders 11/14/19 21:53 Wrist Comp Min 3V Lt [CR] Stat 11/14/19 22:59 DME for Discharge [COMM] Routine - Assessment/Plan Last 24 Hours: My Active Orders 11/14/19 21:53 Wrist Comp Min 3V Lt [CR] Stat 11/14/19 22:59 DME for Discharge [COMM] Routine
--- NOTE | 2019-11-15 07:13 | CR ---
Left wrist: Four views of the left wrist were obtained. Comparison: No previous wrist exam. Diffuse soft tissue swelling is noted. Severe degenerative change is noted within the CMC joint of the thumb with joint space narrowing and surrounding bony debris. No acute fracture, dislocation or other bony abnormality is identified. Small calcification is noted off the posterior triquetrium which appears fairly dense and is likely old. Impression: 1. Severe degenerative change within the CMC joint of the left thumb. 2. Soft tissue swelling. 3. No acute bony abnormality is suspected. Diagnostic code #3 This report was dictated in [place] Standard Time I agree with preliminary report from [facility], finalized on 11/14/19, 11:32 PM Central Time
== END 2019-11-14 23:35 | disposition home or self-care (01) ==
LOC: JD.ED 20:32
DX: S62.112A Displaced fracture of triquetrum [cuneiform] bone, left wrist, initial encounter for closed fracture (principal); I25.2 Old myocardial infarction; I10 Essential (primary) hypertension; E11.9 Type 2 diabetes mellitus without complications; Z88.6 Allergy status to analgesic agent; Z88.8 Allergy status to other drugs, medicaments and biological substances; W20.8XXA Other cause of strike by thrown, projected or falling object, initial encounter
CPT/HCPCS: 73110; 96372; 99283; J1170